=== PATIENT | male | born 1960 | race Caucasian/White ===

== ENCOUNTER → 2024-08-24 08:01 | Outpatient (REF) | payer OTHER, SELFPAY ==
--- NOTE | 2024-08-24 08:55 | CARDSERVDEF ---
Echocardiogram with Definity completed after protocol screening completed. Allergies verified.
Patent IV site: __Right hand metacarpal inserted by Ifrah Osei RN___
IV site flushed with 0.9% NaCl pre and post administration.
Diluted bolus method utilized to enhance visualization of ventricular alexandre.
Total volume given: _3___ mL
Patient tolerated all procedures well without complications.
Heplock D/C ed at 0840, site clear, no redness, no edema. Pressure held for few minutes as pt on anticoagulants, no bleeding. 2x2 applied and taped. Pt offers no complaints.
== END ==
LOC: RCS 08:01
PROVIDERS: ATTENDING PHYSICIAN Nuclear Medicine Nuclear Cardiology; FAMILY PHYSICIAN Family Medicine
DX: Z95.5 Presence of coronary angioplasty implant and graft (principal); I25.10 Atherosclerotic heart disease of native coronary artery without angina pectoris; I25.5 Ischemic cardiomyopathy; I25.2 Old myocardial infarction
CPT/HCPCS: 93307; Q9957